=== PATIENT | female | born 1980 | race Two or more races ===

== ENCOUNTER 2024-08-12 17:48 | Emergency (ER) | payer OTHER, SELFPAY ==
[2024-08-12 18:32] VITALS: BP 113/73; PULSE 62; RESP 18; TEMP 36.8; O2SAT 100; BMI 34.2
--- NOTE | 2024-08-12 18:44 | EDNOTE_ITS ---
<Statement entered by Enedina Oliva MD - 08/12/24 22:03> As co-signing physician, I was present and available for consult prn. I concur with the plan and care as documented by the midlevel provider. ED OB Contraction Preg RMI/HPI General Chief complaint: Vaginal Bleeding Stated complaint: SEVERE VAGINAL BLEEDING PAIN W/CLOTS; HX FIBROID Time Seen by Provider: 08/12/24 18:06 Arrival date/time: 08/12/24 17:48 43-year-old female who reports history of gastric bypass, uterine fibroids and abnormal menses reports with complaints of worsening bleeding and cramps that began 2 weeks ago. Patient states that she received a Depo-Provera injection by her TRAFFIC SIGN SUPERVISOR with hopes to help reduce the bleeding and pain however it seems to have worsened. Patient states that she has taken some [id number] medications with no improvement of symptoms. Patient denies fever chills nausea or vomiting weakness or fatigue shortness of breath or chest pain. Limitations: no limitations Related Data Home Medications ?Medication ?Instructions ?Recorded ?Confirmed hydrochlorothiazide 12.5 mg capsule 12.5 mg PO QDAY 10/17/17 11/29/19 buspirone 10 mg tablet 10 mg PO BID 02/22/19 11/29/19 metformin 500 mg tablet 500 mg PO BID 08/16/19 11/29/19 Previous Rx's ?Medication ?Instructions ?Recorded ibuprofen 800 mg tablet 800 mg PO TID PRN pain #30 tabs 08/16/19 promethazine-DM 6.25 mg-15 mg/5 mL 5 ml PO Q6H PRN cough #150 mL 10/03/19 oral syrup acetaminophen 325 mg capsule 650 mg (2 x 325 mg) PO QID PRN 06/08/23 (Tylenol) fever or pain #30 caps acetaminophen 300 mg-codeine 15 mg 1 tab PO Q12H PRN pain #15 tabs 08/12/24 tablet Allergies Allergy/AdvReac Type Severity Reaction Status Date / Time morphine Allergy Intermediate welts to Verified 08/12/24 17:51 body Review of Systems Constitutional Constitutional: Denies chills, Denies fever(s) and Denies headache(s) ENT Ears, Nose, Mouth, and Throat: Denies headache(s) and Denies vertigo Cardiovascular Cardiovascular: Denies chest pain, Denies dyspnea and Denies irregular heart rhythm Respiratory Respiratory: Denies cough and Denies dyspnea Gastrointestinal Gastrointestinal: Denies nausea and Denies vomiting Genitourinary Genitourinary: Reports abnormal menses, Reports dysmenorrhea, Reports menorrhagia, Reports metrorrhagia and Denies nipple discharge Musculoskeletal Musculoskeletal: Denies back pain and Denies myalgias Integumentary/Breasts Skin/Breast: Denies breast swelling and Denies nipple discharge Neurologic Neurologic: Denies headache(s) and Denies vertigo Hematologic/Lymphatic Hematologic/Lymphatic: Denies easy bleeding and Denies easy bruising Past Medical History Past Medical History NEUROLOGIC: Positive Neurological Disorders and Migraine (TAKES OTC); Negative Seizures CARDIAC: Positive Cardiac Disorders and Hypertension; Negative Congestive Heart Failure RESPIRATORY: Positive Asthma (HAS INHALER) and Tuberculosis (1993 HAD TREATMENT); Negative Chronic Obstructive Pulmonary Disease (COPD) GASTROINTESTINAL: Positive Gastrointestinal Disorders, Gall Bladder Disease (FOR THIS PROC), Gastroesophageal Reflux Disease (TAKES OTC) and Obesity GENITOURINARY: Positive Genitourinary Disorders and Kidney Stones; Negative Renal Disease REPRODUCTIVE: Positive Previous Pregnancies MUSCULOSKELETAL: Positive Musculoskeletal Disorders ENDOCRINE: Negative Endocrine Disorders, Diabetes Mellitus Type 1 or Diabetes Mellitus Type 2 HEMATOLOGIC: Negative Blood Disorders PSYCHO/SOCIAL: Positive Depression (TAKES MED) OTHER HISTORY: Positive Shingles (2017) and Chicken Pox (1991); Negative Hospitalization, Autoimmune Disease, Falls, Blood Transfusions, Blood Transfusion Reaction, Anesthesia Reactions, Chemotherapy, Radiation Therapy or MRSA Family History FAMILY HISTORY: Positive Family Psychiatric Problems (BROTHER (DEPRESSION)), Family Cardiac Disorders, Family Gastrointestinal Problems (SISTER (ULCER)) and Family Surgery (MOTHER,FATHER,SISTER); Negative Family Respiratory Disorders, Family Cancer or Family Anesthesia Reaction Surgical History SURGICAL: Positive Section Social History SMOKING STATUS: Never smoker SUBSTANCE USE: does not use ED Exam General Limitations: Present no limitations General appearance: Present alert and in no apparent distress Chest Chest inspection: Present normal inspection and symmetric chest wall rise Respiratory Respiratory exam: Present normal lung sounds bilaterally Cardiovascular Cardiovascular exam: Present regular rate, normal rhythm and normal heart sounds Abdominal Exam Abdominal exam: Present soft and normal bowel sounds Back Exam Back exam: Present normal inspection and full ROM Neurological Exam Neurological exam: Present alert, oriented X3 and CN II-XII intact Psychiatric Psychiatric exam: Present normal affect and normal mood Skin Skin exam: Present warm, dry, intact and normal color Course Course Course Narrative: Patient is a allergy to morphine however she reports taking codeine in the past with no adverse reactions Quality Measures none Orders Category Date Time Status CBC Stat Lab 08/12/24 19:00 Completed HCG,Qualitative Serum Stat Lab 08/12/24 19:00 Completed Ketorolac Inj [Toradol Inj] Med 08/12/24 20:04 Discontinued 30 mg IM X1 ONE Vital Signs Vital signs: Vital Signs Temperature 98.3 F 08/12/24 18:32 Pulse Rate 62 08/12/24 18:32 Respiratory Rate 18 08/12/24 18:32 Blood Pressure 113/73 08/12/24 18:32 Pulse Oximetry (%) 100 08/12/24 18:32 Oxygen Delivery Method Room Air 08/12/24 18:32 Vaginal Bleeding Patient data External records reviewed:: None Clinical information provided by:: patient Social determinants that could affect healthcare access:: none Patient has the following chronic illnesses:: none How is presenting disease/condition affected by chronic disease/condition?: no chronic disease Evaluation data The following diagnostics were reviewed and interpreted by me:: lab results Lab and/or radiology exams considered but not ordered:: none Interpretation Summary: negative Medications / Prescriptions Medications or Prescriptions considered but not ordered:: none Medication administrations:: Medication Administration History Discontinued Medications Ketorolac Tromethamine (Ketorolac Inj 60 Mg/2 Ml Vial) 30 mg IM X1 ONE Stop: 08/12/24 20:05 Last Admin: 08/12/24 20:23 Dose: 30 mg Documented By: toradol 30 mg IM Consultations Consultation(s) initiated? (list below): No Diagnosis Vaginal Bleeding Differential Diagnosis: missed , threatened , dysfunctional uterine bleeding and menometrorrhagia Most likely diagnosis given after review of the tests above:: Menomenorrhagia Admission Indicated Admission indicated?: not indicated Admission Request Was there a request for admission?: No Disposition Plan Disposition Plan: Discharge Discharge Attestation Discharge Attestation: The patient and all family members were given an opportunity to ask questions and understood the discharge instructions. Discharge instructions specifically effects, indications for sooner follow up or return to the emergency department, and the expected course of current diagnosis. Patient condition: Stable Discharge Plan Plan Patient Disposition: HOME (Self Care) Prescriptions/Referrals Prescriptions/Med Rec: New acetaminophen-codeine 300-15 mg tablet 1 tab PO Q12H MDD 4g APAP PRN (Reason: pain) Qty: 15 0RF Rx Instructions: pt reports taking Codeine in the past with no adverse reactions No Action hydrochlorothiazide 12.5 mg capsule 12.5 mg PO QDAY promethazine-DM 6.25-15 mg/5 mL syrup 5 ml PO Q6H PRN (Reason: cough) Qty: 150 0RF metformin 500 mg Tablet 500 mg PO BID ibuprofen 800 mg tablet 800 mg PO TID PRN (Reason: pain) Qty: 30 0RF buspirone 10 mg Tablet 10 mg PO BID acetaminophen [Tylenol] 325 mg capsule 650 mg PO QID PRN (Reason: fever or pain) Qty: 30 0RF Referrals: Arnie Marcial[facility]MD [Primary Care Provider] - In 1 week Problem List Clinical Impression: Dysfunctional uterine bleeding Patient/Caregiver Discharge Instructions Discharge Activity: activity as tolerated Education Materials: ED Dysfunctional Uterine Bleeding Additional Instructions: Follow-up with your TRAFFIC SIGN SUPERVISOR as planned Print Language: Vincentian Stand Alone Forms: Nora Award Info., Patient Portal Info Letter
[2024-08-12 19:30] LABS: Basophils % (Auto) 0 % (0-2.5); Eosinophils # (Auto) 0.2 Thou/mm3 (0.0-0.5); Eosinophils % (Auto) 2 % (0-10); Hematocrit 37.4 % (36.0-46.0); Hemoglobin 11.9 g/dL (12.0-16.0); Immature Granulocytes % (Auto) 0 % (0-0); Immature Granulocytes Auto 0.02 Thou/mm3 (0.00-0.00); Lymphocytes # (Auto) 2.5 Thou/mm3 (1.0-4.8); Lymphocytes % (Auto) 32 % (10-50); Mean Corpuscular HGB Conc 31.8 g/dl (31.0-37.0); Mean Corpuscular Hemoglobin 28.7 pg (25.0-35.0); Mean Corpuscular Volume 90 fL (80-100); Monocytes # (Auto) 0.5 Thou/mm3 (0.0-0.8); Monocytes % (Auto) 7 % (0-12); Neutrophils # (Auto) 4.6 Thou/mm3 (1.8-7.7); Neutrophils % (Auto) 59 % (37-80); Nucleated Red Blood Cell % 0 /100 WBC (0); Platelet Count 82 Thou/mm3 (140-440); RDW Standard Deviation 43.4 fL (36.4-46.3); Red Blood Count 4.15 Miln/mm3 (4.00-5.20); White Blood Count 7.8 Thou/mm3 (3.6-11.0)
[2024-08-12 19:49] LABS: HCG,Qualitative Serum Negative
[2024-08-12] MEDS: KETOROLAC INJ 60 MG/2 ML VIAL 30 MG IM (20:23)
== END 2024-08-12 20:32 | disposition home or self-care (01) ==
PROVIDERS: Physician Assistant; Emergency Provider Emergency Medicine; PCP Family Medicine
DX: N93.8 Other specified abnormal uterine and vaginal bleeding (principal)
CPT/HCPCS: 36415; 84703; 85025; 96372; 99283; J1885